=== PATIENT | male | born 1960 | race Caucasian/White ===

== ENCOUNTER → 2023-07-02 07:26 | Outpatient (REF) | payer OTHER, SELFPAY | LOC: HWRAD 07:26 | PROVIDERS: ATTENDING PHYSICIAN Internal Medicine Cardiovascular Disease; FAMILY PHYSICIAN Internal Medicine | DX: I77.810 Thoracic aortic ectasia (principal) | CPT/HCPCS: 71250 ==

== ENCOUNTER → 2023-07-14 14:31 | Outpatient (REF) | payer OTHER, SELFPAY | LOC: DHCBC MAIN 14:31 | PROVIDERS: ATTENDING PHYSICIAN Internal Medicine Cardiovascular Disease; FAMILY PHYSICIAN Internal Medicine | DX: I10 Essential (primary) hypertension (principal); I31.9 Disease of pericardium, unspecified | CPT/HCPCS: 93306 ==

== ENCOUNTER → 2024-04-13 15:47 | Outpatient (REF) | payer OTHER, SELFPAY | LOC: RAD 15:47 | PROVIDERS: ATTENDING PHYSICIAN Internal Medicine | DX: Z00.00 Encounter for general adult medical examination without abnormal findings (principal); M79.641 Pain in right hand | CPT/HCPCS: 73110; 73130 ==